=== PATIENT | male | born 1985 | race Caucasian/White ===

== ENCOUNTER 2018-10-26 10:16 | Emergency (ER) | payer OTHER ==
[~2018-10-26] VITALS: Ht 188 cm; Wt 95.5 kg
[~2018-10-26 10:16] MED LIST: DEPO-MEDROL80 MG/ML IM; HYDROXYZINE HCL25 M1 OR; MEDDOSEPAK PO
[2018-10-26 11:49] VITALS: BP 132/78
== END 2018-10-26 11:50 | disposition home or self-care (01) | DRG 918 ==
LOC: ED 10:16
DX: T59.4X1A Toxic effect of chlorine gas, accidental (unintentional), initial encounter (principal); J02.9 Acute pharyngitis, unspecified; R06.02 Shortness of breath